=== PATIENT | male | born 1980 ===

== ENCOUNTER 2018-01-24 02:56 | Emergency (ER) | payer OTHER ==
[2018-01-24 03:06] VITALS: TEMP 98.2
--- NOTE | 2018-01-24 04:30 | ED PDOC ---
HPI: Psych/Substance Abuse Time Seen by Provider: 01/24/18 03:22 Chief Complaint (Nursing): Alcohol Ingestion Chief Complaint (Provider): Alcohol Ingestion ED Caveat: Intoxicated History/Exam Limitations: intoxication Additional Complaint(s): Patient is a 37 y/o male who was brought to the ED by EMS due to alcohol abuse and vomiting. Patient admits to drinking but cannot quantify how much. He denies any drug abuse or injury. Patient is intoxicated and cannot give a reliable history. Past Medical History Reviewed: Historical Data, Nursing Documentation, Vital Signs Vital Signs: Last Vital Signs Temp 98.2 F 01/24/18 03:03 Pulse 79 01/24/18 03:03 Resp 16 01/24/18 03:03 BP 100/53 L 01/24/18 03:03 Pulse Ox 96 01/24/18 03:03 - Family History Family History: States: Unknown Family Hx - Allergies Allergies/Adverse Reactions: Allergies Allergy/AdvReac Type Severity Reaction Status Date / Time No Known Allergies Allergy Verified 01/24/18 03:38 Review of Systems Review Of Systems: ROS cannot be obtained secondary to pt's inabilty to answer questions. (intoxication) Physical Exam - Reviewed Nursing Documentation Reviewed: Yes Vital Signs Reviewed: Yes - Physical Exam Appears: Positive for: Non-toxic, No Acute Distress (appearing intoxicated) Head Exam: Positive for: ATRAUMATIC, NORMOCEPHALIC Skin: Positive for: Normal Color, Warm, Dry Eye Exam: Positive for: EOMI, Normal appearance, PERRL Cardiovascular/Chest: Positive for: Regular Rate, Rhythm. Negative for: Murmur Respiratory: Positive for: Normal Breath Sounds. Negative for: Respiratory Distress Gastrointestinal/Abdominal: Positive for: Normal Exam, Soft. Negative for: Tenderness Back: Positive for: Normal Inspection Extremity: Positive for: Normal ROM. Negative for: Pedal Edema, Deformity Neurologic/Psych: Positive for: Alert, Oriented. Negative for: Motor/Sensory Deficits - ECG O2 Sat by Pulse Oximetry: 96 (RA) Pulse Ox Interpretation: Normal Medical Decision Making Medical Decision Making: Time: 03:30 A/P: 37 y/o male presenting with alcohol intoxication. Patient is in stable condition with normal vitals. Will monitor until clinical sobriety. 6:20 Patient awake, alert, sober, steady gait. Stable for discharge. Scribe Attestation: Documented by Rafiq Boucher, acting as a scribe for Anshul Randhawa MD. Provider Scribe Attestation: All medical record entries made by the Scribe were at my direction and personally dictated by me. I have reviewed the chart and agree that the record accurately reflects my personal performance of the history, physical exam, medical decision making, and the department course for this patient. I have also personally directed, reviewed, and agree with the discharge Disposition - Clinical Impression Clinical Impression: Alcohol abuse - Patient ED Disposition Is Patient to be Admitted: No - Disposition Referrals: Ash Mccauley MD [Primary Care Provider] - Disposition: Routine/Home Disposition Time: 06:21 Condition: STABLE Instructions: Alcohol Abuse and Alcoholism (DC) Forms: [employer] (Grenadian)
[2018-01-24 06:57] VITALS: BP 125/68; PULSE 83; RESP 17; O2SAT 99
== END 2018-01-24 06:55 | disposition home or self-care (01) ==
LOC: H.ER 02:56
DX: F10.129 Alcohol abuse with intoxication, unspecified (principal)